=== PATIENT | female | born 1970 | race Caucasian/White ===

== ENCOUNTER 2020-09-19 21:08 | Inpatient (IN) | payer SELFPAY ==
[2020-09-19 21:42] LABS: BASOPHILS % (AUTO) 0.4 %; EOSINOPHILS # (AUTO) 0.3 10^3/uL (0.0-0.7); EOSINOPHILS % (AUTO) 3.1 %; HCT - HEMATOCRIT 42.6 % (37.0-47.0); HGB - HEMOGLOBIN 13.8 g/dL (12.0-16.0); LYMPHOCYTES # (AUTO) 2.7 10^3/uL (1.5-3.5); LYMPHOCYTES % (AUTO) 27.9 %; MEAN CORPUSCULAR HEMOGLOBIN 35.2 pg (27.0-31.0); MEAN CORPUSCULAR HGB CONC 32.4 g/dL (32.0-36.0); MEAN CORPUSCULAR VOLUME 108.7 fL (81.0-99.0); MEAN PLATELET VOLUME 8.9 fL (7.9-10.8); MONOCYTES # (AUTO) 0.8 10^3/uL (0.0-1.0); MONOCYTES % (AUTO) 7.8 %; NEUTROPHILS # (AUTO) 5.8 10^3/uL (1.5-6.6); NEUTROPHILS % (AUTO) 60.3 %; NRBC ABSOLUTE COUNT (AUTO) 0.04 x10^3/uL; NUCLEATED RED BLOOD CELLS AUTO 0.4 /100WBC; PLT - PLATELET COUNT 242 10^3/uL (130-450); RED BLOOD COUNT 3.92 10^6/uL (4.20-5.40); RED CELL DISTRIBUTION WIDTH 16.8 % (12.0-15.0); WHITE BLOOD COUNT 9.6 x10^3/uL (4.8-10.8)
[2020-09-19 21:49] LABS: INR 1.1 (0.8-1.2); PT - PROTHROMBIN TIME 11.7 secs (9.9-12.6)
[2020-09-19 22:10] LABS: ALBUMIN 4.6 g/dL (3.2-5.5); ALBUMIN/GLOBULIN RATIO 1.4 (1.0-2.2); BILIRUBIN,TOTAL 0.8 mg/dL (0.2-1.0); CALCIUM 9.7 mg/dL (8.5-10.3); MAGNESIUM 2.1 mg/dL (1.7-2.8); POTASSIUM 3.9 mmol/L (3.5-5.0); TOTAL PROTEIN 7.8 g/dL (6.7-8.2)
--- NOTE | 2020-09-19 22:33 | ED Physician Documentation ---
PD HPI DYSPNEA - Stated complaint Stated Complaint: SOA/LT ARM PX - Chief complaint Chief Complaint: Resp - History obtained from History obtained from: Patient - History of Present Illness Timing - onset: How many months ago (has had dyspnea on exertion and noted leg edema for a month or more. Has had slow progression. Notes general body edema the past week or more. Today was feeling even more dyspnea, with chest pain and tightness to left chest, into left shoulder. Unable to walk across room without dyspnea.) Timing - onset during: Light activity, Exertion Timing - duration: Months (1 month or more, progressive, with significant increase the past week or so.) Timing - details: Gradual onset, Still present Inciting event(s): No: URI, Allergic rxn/anaphylaxis, Immobilization/travel Improved by: Rest, Sitting up Worsened by: Exertion, Laying flat Associated symptoms: Wheezing, Chest pain / discomfort (today), Bilateral edema (progressive the past 1-2 months). No: Fever, Cough, Hemoptysis Similar symptoms before: Has not had sx before Recently seen: Not recently seen Review of Systems Constitutional: denies: Fever, Chills, Myalgias, Fatigue Nose: denies: Rhinorrhea / runny nose, Congestion Throat: denies: Sore throat Cardiac: reports: Chest pain / pressure, Pedal edema. denies: Palpitations, Calf pain Respiratory: reports: Dyspnea. 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 - Present Medications Home Medications: Ambulatory Orders Medication Instructions Recorded Confirmed No Known Home Medications 09/20/20 09/20/20 - Allergies Allergies/Adverse Reactions: Allergies Allergy/AdvReac Type Severity Reaction Status Date / Time No Known Drug Allergies Allergy Verified 04/21/16 17:09 - Living Situation Living Situation: reports: Alone Living Arrangement: reports: At home - Social History Does the pt smoke?: No Smoking Status: Never smoker Does the pt drink ETOH?: No Does the pt have substance abuse?: No - Family History Family history: reports: CAD - Immunizations Immunizations are current?: No Immunizations: TDAP >10years/unknown PD ED PE NORMAL - Vitals Vital signs reviewed: Yes - General General: Alert and oriented X 3, Well developed/nourished, Other (She appears uncomfortable with tachypnea and tachycardia. Blood pressure is elevated. There is mild wheezing with prolonged expiratory phase. Very notable bilateral leg edema.) - HEENT HEENT: Moist mucous membranes, Pharynx benign - Neck Neck: Supple, no meningeal sign, No adenopathy, Other (JVD noted at 45 degrees. She is most comfortable sitting upright. ) - Cardiac Cardiac: No murmur. No: RRR (regular but tachycardic) - Respiratory Respiratory: No: Clear bilaterally (mild exp wheezing noted scattered. Some p rolonged exp phase. Fine crackles at bases. ) - Abdomen Abdomen: Soft, Non tender, Other (obese) - Female Female : Deferred - Rectal Rectal: Deferred - Back Back: No CVA TTP - Derm Derm: Normal color, Warm and dry - Extremities Extremities: No tenderness to palpate, Normal ROM s pain, No calf tenderness / cord, Other (2+ edema in both lower legs up to knees. Some edema in hands. Mild facial edema. ) - Neuro Neuro: Alert and oriented X 3, No motor deficit, Normal speech Results - Vitals Vitals: Vital Signs - 24 hr 09/19/20 09/19/20 09/19/20 21:24 23:40 23:52 Temperature 36.7 C Heart Rate 110 H 94 97 Respiratory 20 18 18 Rate Blood Pressure 188/98 H 176/103 H O2 Saturation 96 92 09/20/20 09/20/20 09/20/20 00:56 01:03 01:36 Temperature Heart Rate 84 86 Respiratory 17 15 40 H Rate Blood Pressure 154/119 H 157/90 H O2 Saturation 95 93 86 L Oxygen O2 Source Room air - EKG (time done) 22:08 Rate: Rate (enter#) (105) Rhythm: NSR [place]: Normal Intervals: Normal NH QRS: Poor R wave progression Ischemia: Normal ST segments. No: ST elevation c/w ischemia, ST depression Compare to prior EKG: Old EKG unavailable Computer interpretation: Disagree with computer (I disagree with its reading of atrial fib. ) - Labs Labs: Laboratory Tests 09/19/20 09/19/20 09/19/20 21:38 21:38 21:38 WBC 9.6 RBC 3.92 L Hgb 13.8 Hct 42.6 MCV 108.7 H MCH 35.2 H MCHC 32.4 RDW 16.8 H Plt Count 242 MPV 8.9 Neut # (Auto) 5.8 Lymph # (Auto) 2.7 [place] # (Auto) 0.8 Eos # (Auto) 0.3 Baso # (Auto) 0.0 Absolute Nucleated RBC 0.04 Nucleated RBC % 0.4 PT 11.7 INR 1.1 Sodium 142 Potassium 3.9 Chloride 97 L Carbon Dioxide 30 Anion Gap 15.0 H BUN 14 Creatinine 1.0 Estimated GFR (MDRD) 58 L Glucose 125 H Calcium 9.7 Magnesium 2.1 Total Bilirubin 0.8 AST 49 H ALT 54 Alkaline Phosphatase 105 Troponin I High Sens B-Natriuretic Peptide Total Protein 7.8 Albumin 4.6 Globulin 3.2 Albumin/Globulin Ratio 1.4 Urine Color Urine Clarity Urine pH Ur Specific [place] Urine Protein Urine Glucose (UA) Urine Ketones Urine Occult Blood Urine Nitrite Urine Bilirubin Urine Urobilinogen Ur Leukocyte Esterase Ur Microscopic Review Urine Culture Comments 09/19/20 09/19/20 09/20/20 21:38 21:38 01:32 WBC RBC Hgb Hct MCV MCH MCHC RDW Plt Count MPV Neut # (Auto) Lymph # (Auto) [place] # (Auto) Eos # (Auto) Baso # (Auto) Absolute Nucleated RBC Nucleated RBC % PT INR Sodium Potassium Chloride Carbon Dioxide Anion Gap BUN Creatinine Estimated GFR (MDRD) Glucose Calcium Magnesium Total Bilirubin AST ALT Alkaline Phosphatase Troponin I High Sens 8.3 B-Natriuretic Peptide 144 H Total Protein Albumin Globulin Albumin/Globulin Ratio Urine Color YELLOW Urine Clarity CLEAR Urine pH 6.0 Ur Specific [place] 1.020 Urine Protein NEGATIVE Urine Glucose (UA) NEGATIVE Urine Ketones NEGATIVE Urine Occult Blood NEGATIVE Urine Nitrite NEGATIVE Urine Bilirubin NEGATIVE Urine Urobilinogen 0.2 (NORMAL) Ur Leukocyte Esterase NEGATIVE Ur Microscopic Review NOT INDICATED Urine Culture Comments NOT INDICATED - Rads (name of study) chest xray Radiology: Prelim report reviewed (Mild interstitial prominence suggestive of edema. No effusions.), See rad report PD MEDICAL DECISION MAKING - ED course Complexity details: reviewed results (Her chest x-ray shows some interstitial vascular congestion. BNP is minimally elevated. However her symptoms would be suggestive of acute CHF. No signs of renal failure. Urine does not show signs of protein to suggest nephrotic syndrome. It does not seem like allergic reaction nor med related.), re-evaluated patient (Some diuresis with diuretic and heart rate and blood pressure are improved with metoprolol. However still considerable dyspnea. She needs further evaluation and treatment acutely.), considered differential (Considerable dyspnea with even just walking to the bathroom and back. Tachypneic. Baseline sats of 92 to 93% decreased to 86% with ambulation. Consider CHF versus renal failure versus medication related but she does not take any, versus nephrotic syndrome. We will test for each.), d/w patient Departure - Departure Disposition: 66 [facility] DC/Xfer Clinical Impression: Generalized edema, Hypoxia, New onset of congestive heart failure, Elevated blood pressure reading Dyspnea Qualifiers: Dyspnea type: shortness of breath Qualified Code(s): R06.02 - Shortness of breath Condition: Stable Record reviewed to determine appropriate education?: Yes Discharge Date/Time: 09/20/20 02:40
[2020-09-19] MEDS ORDERED: ALBUTEROL NEB 2.5 MG/3 ML INH STA (23:04)
[2020-09-19] MEDS ORDERED: METOPROLOL 5 MG/5 ML VIAL IVP STA (23:05)
[2020-09-19] MEDS ORDERED: FUROSEMIDE 20 MG/2 ML VIAL IVP STA (23:05)
[2020-09-20] MEDS ORDERED: FUROSEMIDE 40 MG/4 ML VIAL IVP STA (01:27)
[2020-09-20 01:40] LABS: BILIRUBIN,URINE NEGATIVE (NEGATIVE); GLUCOSE, URINE (UA) NEGATIVE (NEGATIVE); KETONES,URINE (UA) NEGATIVE (NEGATIVE); LEUKOCYTE ESTERASE, URINE NEGATIVE (NEGATIVE); NITRITE,URINE NEGATIVE (NEGATIVE); OCCULT BLOOD,URINE NEGATIVE (NEGATIVE); PROTEIN,URINE NEGATIVE (NEGATIVE); UROBILINOGEN,URINE 0.2 (NORMAL) E.U./dL (NORMAL)
[2020-09-20 01:41] LABS: CLARITY,URINE CLEAR (CLEAR)
[2020-09-20] MEDS ORDERED: ACETAMINOPHEN 325 MG TABLET PO PRN (01:57)
[2020-09-20] MEDS ORDERED: ONDANSETRON ODT 4 MG TABLET TL PRN (01:57)
[2020-09-20] MEDS ORDERED: SODIUM CHLORIDE FLUSH 0.9% 10 ML SYRINGE IVP PRN (01:57)
--- NOTE | 2020-09-20 02:02 | HISTORY & PHYSICAL EXAMINATION ---
Chief Complaint - Chief Complaint Chief Complaint: Shortness of breath History of Present Illness - Admitted From Admitted From:: Home - History Obtained From Records Reviewed: Yes History obtained from: Patient, ER Physician, EMR - History of Present Illness HPI Comment/Other: This is a 50-year-old female with no significant past medical history who presents today complaining of worsening dyspnea on exertion. She states her symptoms began around June which noted she would have increasing dyspnea with exertion as well as increasing lower extremity edema. This has progressed over the last few months and now she notices she has periorbital edema when she wakes up in the morning which will improve throughout the day. She states in January of last year she weighed about 280 pounds and now she weighs about 330 pounds. She states most of the edema is in her lower extremities. She now wears sandals because her shoes do not fit. She feels like her abdomen is distended and bloated. Today she also felt chest pressure in her left shoulder radiating down to her arm. She had no associated nausea or vomiting. No diaphoresis. It was a 5 out of 10 but now it is down to 1 out of 10. She is a non-smoker and reports no family history of heart disease. She has not seen a physician in over 6 years. Denies a history of hypertension. In the emergency department, she was found to be afebrile with a temperature of 36.7 C. Her heart rate was initially in the 110s but this improved to the 90s. Initial blood pressure was 188/98 but this improved to the 150s after receiving 5 mg of IV Lopressor. She was not tachypneic and saturating 92 to 95% on room air. Labs were significant for BNP of 144. Her urinalysis was unremarkable including negative protein. Her chest x-ray was concerning for pulmonary vascular congestion. Her EKG revealed a sinus rhythm without any ischemic changes. Troponin was normal. She was given 20 mg of Lasix IV in the emergency department. She was able to ambulate after this but still has significant dyspnea on exertion and desaturated to 86% on room air. Given the above findings, medicine was consulted for admission. 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 She believes her father had prostate cancer. Her paternal aunt and grandmother had breast cancer. No history of heart disease to her knowledge. Living arrangement: At home Living Situation: With spouse/s.o. Social History Notes: She is a non-smoker. She does drink 3-4 alcoholic beverages every other day. 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 Meds/Allgy - Home Medications Home Medications: Ambulatory Orders Medication Instructions Recorded Confirmed No Known Home Medications 09/20/20 09/20/20 - Allergies Allergies/Adverse Reactions: Allergies Allergy/AdvReac Type Severity Reaction Status Date / Time No Known Drug Allergies Allergy Verified 04/21/16 17:09 Review of Systems - Constitutional Constitutional: reports: Weight gain. denies: Fever, Chills - Eyes Eyes: reports: Blurred vision - Ears, Nose & Throat Ears, Nose & Throat: denies: Nasal discharge, Nasal congestion, Sore throat - Cardiovascular Cariovascular: reports: Chest pain, Edema, Exertional dyspnea, Decr. exercise tolerance - Respiratory Respiratory: reports: Orthopnea, SOB with exertion. denies: SOB at rest - Gastrointestinal Gastrointestinal: reports: Vomiting. denies: Abdominal pain, Constipation, Diarrhea, Change in bowel habits, Nausea - Genitourinary Genitourinary: denies: Dysuria, Frequency - Musculoskeletal Musculoskeletal: reports: Back pain - Integumentary Integumentary: denies: Rash - Neurological Neurological: reports: Dizziness. denies: General weakness, Focal weakness, N umbness - Hematologic/Lymphatic Hematologic/Lymphatic: reports: Blood clots. denies: Bleeding tendencies - All Other Systems All Other Systems: reports: Reviewed and negative Prior Level of Functionality: She is independent with her ADL's. Exam - Vital Signs Reviewed Vital Signs: Yes Vital Signs: Vital Signs x48h Temp Pulse Resp BP Pulse Ox 09/20/20 01:36 40 H 86 L 09/20/20 01:03 86 15 157/90 H 93 09/20/20 00:56 84 17 154/119 H 95 09/19/20 23:52 97 18 176/103 H 92 09/19/20 23:40 94 18 09/19/20 21:24 36.7 C 110 H 20 188/98 H 96 - Physical Exam General Appearance: positive: No acute distress, Alert Eyes Bilateral: positive: Normal inspection, Conjunctivae nml, Other (No periorbital edema.) ENT: positive: ENT inspection nml Neck: positive: Nml inspection Respiratory: positive: No respiratory distress, Other (Diminished bilaterally.). negative: Wheezes, Rales Cardiovascular: negative: Irregularly irregular, Tachycardia, Bradycardia, Systolic murmur Abdomen: positive: Non-tender, No distention. negative: Tenderness, Guarding, Rebound Skin: positive: Warm, Dry Extremities: positive: Pedal edema (+2 edema in the bilateral lower extremities.) Neurologic/Psychiatric: positive: Oriented x3, Motor nml. negative: Disoriented to person, Disoriented to place, Disoriented to time Conclusion/Plan - Problem List (1) Suspected CHF (congestive heart failure) Conclusion/Plan: The concern is for new onset heart failure given her edema, hypoxia, dyspnea and chest x-ray findings of pulmonary vascular congestion. Her BNP is only mildly elevated but this may be due to her obesity. We will admit her for IV diuresis and place her on Lasix 40 mg IV daily. Will obtain echocardiogram in the morning. Check a TSH. Monitor on telemetry. Low-salt diet. Fluid restriction o f 2 L. Daily weights. (2) Hypoxia Conclusion/Plan: She was hypoxic with exertion desaturating down to 86% on room air. At rest she is in the low 90s. This is likely due to the heart failure given the pulmonary vascular congestion. We will diurese her Lasix 40 mg IV daily. Plan as mentioned above. (3) Chest pressure Conclusion/Plan: This has now pretty much resolved. Her EKG does not suggest ischemia and initi al troponin is negative. We will trend her troponin and monitor on telemetry. Obtain echocardiogram. Will consider stress test if her chest pain returns. (4) Generalized edema Conclusion/Plan: Suspect this is secondary to likely CHF. Her urinalysis reveals no proteinuria so would not suspect nephrotic syndrome. She does drink alcohol but her LFTs are normal so doubt cirrhosis. We will obtain an echocardiogram to evaluate for heart failure as mentioned above. We will diurese her with Lasix IV. Will obtain duplex of the lower extremities. Low-salt diet. Fluid restriction. Daily weights. (5) Hypertension Conclusion/Plan: Her blood pressure is elevated with systolic in the 150s. She will need antihypertensive and based off her echocardiogram findings, she may potentially need an EN inhibitor and a beta-deana. We will look to start an EN inhibitor in the morning and will hold off on a beta-deana for the time being given the acute heart failure. - Lab Results Lab results reviewed: Yes Fish Bones: 09/19/20 21:38 09/19/20 21:38 - Diagnostic Imaging Results Diagnostic Imaging Results: positive: Final report reviewed - EKG Results EKG Interpreted Independently: Yes EKG Comparison: No prior EKG EKG Findings: EKG shows a sinus rhythm. No ischemic changes. No evidence of LVH. Core Measures - Anticipated LOS I expect patient to be DC'd or transferred within 96 hours.: Yes - Issues Hospital Issues and Management Plan: 50-year-old female presents with dyspnea on exertion found to have suspected CHF. She is hypoxic with exertion she will admit for IV diuresis and echocardiogram. - DVT/VTE - Prophylaxis VTE/DVT Device ordered at admit?: No Not Ordered - Medical Reason: Not tolerated VTE/DVT Prophylaxis med ordered at admit?: Yes
[2020-09-20 03:39] LABS: B. PARAPERTUSSIS- RESP PCR PAN NOT DETECTED; B. PERTUSSIS- RESP PCR PANEL NOT DETECTED; C. PNEUMONIAE- RESP PCR PANEL NOT DETECTED; CORONAVIRUS 229E-RESP PCR NOT DETECTED; CORONAVIRUS HKU1-RESP PCR NOT DETECTED; CORONAVIRUS NL63-RESP PCR NOT DETECTED; CORONAVIRUS OC43-RESP PCR NOT DETECTED; HUMAN METAPNEUMOVIRUS NOT DETECTED; INFLUENZA A- RESP PCR PANEL NOT DETECTED; INFLUENZA B - RESP PCR PANEL NOT DETECTED; M. PNEUMONIAE- RESP PCR PANEL NOT DETECTED; PARAINFLUENZA VIRUS 1 NOT DETECTED; PARAINFLUENZA VIRUS 2 NOT DETECTED; PARAINFLUENZA VIRUS 3 NOT DETECTED; PARAINFLUENZA VIRUS 4 NOT DETECTED; RHINOVIRUS/ENTEROVIRUS NOT DETECTED; RSV- RESP PCR PANEL NOT DETECTED; SARS-CoV-2 -RESP PCR PANEL NOT DETECTED
[2020-09-20 05:44] LABS: BASOPHILS % (AUTO) 0.4 %; EOSINOPHILS # (AUTO) 0.2 10^3/uL (0.0-0.7); EOSINOPHILS % (AUTO) 2.4 %; HCT - HEMATOCRIT 43.8 % (37.0-47.0); HGB - HEMOGLOBIN 13.9 g/dL (12.0-16.0); LYMPHOCYTES # (AUTO) 1.7 10^3/uL (1.5-3.5); LYMPHOCYTES % (AUTO) 20.3 %; MEAN CORPUSCULAR HEMOGLOBIN 35.7 pg (27.0-31.0); MEAN CORPUSCULAR HGB CONC 31.7 g/dL (32.0-36.0); MEAN CORPUSCULAR VOLUME 112.6 fL (81.0-99.0); MONOCYTES # (AUTO) 0.6 10^3/uL (0.0-1.0); MONOCYTES % (AUTO) 7.7 %; NEUTROPHILS # (AUTO) 5.6 10^3/uL (1.5-6.6); NEUTROPHILS % (AUTO) 68.8 %; PLT - PLATELET COUNT 189 10^3/uL (130-450); RED BLOOD COUNT 3.89 10^6/uL (4.20-5.40); RED CELL DISTRIBUTION WIDTH 16.9 % (12.0-15.0); WHITE BLOOD COUNT 8.2 x10^3/uL (4.8-10.8)
[2020-09-20 05:55] LABS: SLIDE REVIEW? Indicated
[2020-09-20 06:21] LABS: CHOLESTEROL 174 mg/dL; HDL CHOLESTEROL 85 mg/dL; LDL CHOLESTEROL,CALCULATED 70 mg/dL; LDL/HDL RATIO 0.8 (<4.4); TRIGLYCERIDES 93 mg/dL; VLDL CHOLESTEROL 19 mg/dL
[2020-09-20 06:26] LABS: CALCIUM 8.9 mg/dL (8.5-10.3); MAGNESIUM 2.1 mg/dL (1.7-2.8); PLATELET ESTIMATE, MANUAL NORMAL (130-450,000) (NORMAL); POTASSIUM 3.8 mmol/L (3.5-5.0)
[2020-09-20] MEDS: MULTIVITAMIN TABLET PO SCH (08:28)
--- NOTE | 2020-09-20 08:47 | XRAY Report ---
PROCEDURE: Chest 1 View X-Ray INDICATIONS: dyspnea/edema TECHNIQUE: One view of the chest was acquired. COMPARISON: None. FINDINGS: Surgical changes and devices: None. Lungs and pleura: Diffuse interstitial prominence. Mild vascular congestion with loss of vascular dis tinctness. No focal consolidations. Diffuse hazy opacities of the bilateral costophrenic angles sugge stive of small pleural effusions. This is more pronounced on the left. No pneumothorax. Mediastinum: Mediastinal contours appear within normal limits. Heart size is enlarged. Bones and chest wall: No suspicious bony lesions. Overlying soft tissues appear unremarkable. IMPRESSION: Cardiomegaly with findings suggestive of pulmonary edema. An inflammatory/infectious process not excl uded if clinically appropriate. No focal consolidations. No significant discrepancy with initial interpretation by overnight radiologist. Reviewed by: Luis Fernando Pardo MD on 09/20/2020 8:46 AM PDT Approved by: Luis Fernando Pardo MD on 09/20/2020 8:46 AM PDT Station ID: [id number]
[2020-09-20] MEDS ORDERED: lisinopriL 20 MG TABLET PO SCH (09:00)
--- NOTE | 2020-09-20 10:28 | PHARMACY PROGRESS NOTE ---
- Best Possible Medication History Admit Date and Time: 09/20/20 0157 Processed by: Nursing (MED REC COMPLETE BY NURSING) As the person ultimately responsible for medication therapy, providers are able to order a medication from an existing home medication list in [facility] via the "Reconcile Routine" prior to Confirmation of that medication by biomedical equipment support specialist. Such practice is discouraged except when the physician, in their clinical judgment, deems that a medical need exists for a medication without regard to previous use.
[2020-09-20] MEDS: THIAMINE 100 MG TABLET PO SCH (10:39)
[2020-09-20] MEDS: SODIUM CHLORIDE FLUSH 0.9% 10 ML SYRINGE IVP SCH ×2 (10:40→17:54)
[2020-09-20] MEDS: FUROSEMIDE 40 MG/4 ML VIAL IVP SCH (10:40)
[2020-09-20] MEDS: HEPARIN 5,000 UNIT/ML VIAL SUBQ SCH ×2 (10:40→21:13)
--- NOTE | 2020-09-20 11:56 | Ultrasound Report ---
PROCEDURE: Duplex Ext Veins Bilateral INDICATIONS: Lower extremity edema. TECHNIQUE: Real-time imaging, as well as color and pulse Doppler interrogation, were performed of the deep veins of both legs from the inguinal ligament to the popliteal fossa. COMPARISON: None. FINDINGS: The deep veins are normally compressible, and free of intraluminal thrombus. Color and pu lse Doppler demonstrate normal phasic intravascular flow. There is normal augmentation response to d istal compression maneuver. IMPRESSION: 1. No evidence of deep venous thrombosis in the right or left lower extremities. Reviewed by: Sammy Doyle MD on 09/20/2020 11:55 AM PDT Approved by: Sammy Doyle MD on 09/20/2020 11:55 AM PDT Station ID: [id number]
[2020-09-20 12:18] LABS: ESTIMATED AVERAGE GLUCOSE 108 mg/dL (70-100); HEMOGLOBIN A1c% 5.4 % (4.27-6.07)
[2020-09-21] MEDS: SODIUM CHLORIDE FLUSH 0.9% 10 ML SYRINGE IVP SCH ×2 (02:06→10:05)
[2020-09-21 07:13] LABS: BASOPHILS % (AUTO) 0.3 %; EOSINOPHILS # (AUTO) 0.2 10^3/uL (0.0-0.7); EOSINOPHILS % (AUTO) 2.8 %; HCT - HEMATOCRIT 39.7 % (37.0-47.0); HGB - HEMOGLOBIN 13.3 g/dL (12.0-16.0); LYMPHOCYTES # (AUTO) 2.2 10^3/uL (1.5-3.5); LYMPHOCYTES % (AUTO) 30.2 %; MEAN CORPUSCULAR HEMOGLOBIN 36.1 pg (27.0-31.0); MEAN CORPUSCULAR HGB CONC 33.5 g/dL (32.0-36.0); MEAN CORPUSCULAR VOLUME 107.9 fL (81.0-99.0); MEAN PLATELET VOLUME 9.1 fL (7.9-10.8); MONOCYTES # (AUTO) 0.6 10^3/uL (0.0-1.0); MONOCYTES % (AUTO) 7.7 %; NEUTROPHILS # (AUTO) 4.1 10^3/uL (1.5-6.6); NEUTROPHILS % (AUTO) 57.9 %; PLT - PLATELET COUNT 201 10^3/uL (130-450); RED BLOOD COUNT 3.68 10^6/uL (4.20-5.40); RED CELL DISTRIBUTION WIDTH 16.5 % (12.0-15.0); WHITE BLOOD COUNT 7.2 x10^3/uL (4.8-10.8)
[2020-09-21 07:15] LABS: CALCIUM 8.3 mg/dL (8.5-10.3); MAGNESIUM 1.7 mg/dL (1.7-2.8); POTASSIUM 3.6 mmol/L (3.5-5.0)
[2020-09-21] MEDS: MULTIVITAMIN TABLET PO SCH (08:31)
[2020-09-21] MEDS ORDERED: lisinopriL 5 MG TABLET PO SCH ×2 (09:00→10:30)
--- NOTE | 2020-09-21 09:18 | Discharge Plan ---
Discharge Plan Problem Reviewed?: Yes Disposition: Home, Self Care Condition: Stable Prescriptions: Furosemide [Lasix] 40 mg PO DAILY #30 tablet Potassium Chloride [Micro-K] 10 meq PO DAILY #30 cap lisinopriL [Zestril] 10 mg PO DAILY #30 tablet Diet: Low Sodium Activity Restrictions: Activity as Tolerated Shower Restrictions: No Driving Restrictions: No Instruction Topics: Potassium Chloride Oral powder, Lisinopril tablets, Furosemide tablets, Heart Failure, ED Angioedema Health Concerns: You presented to the emergency room with a slow but strong increase in edema all over your body. Water was being retained not only in your legs but in your arms and face. It was making you short of breath so that doing simple activities made you short winded. We made sure you were not having a heart attack. You did not have pneumonia but diffuse small amounts of water throughout your lung mcbride. We did an echocardiogram which is an ultrasound of the heart and your heart muscle pump, your valves, and the size of your heart was normal. You are not having blood clots to the legs. Thyroid function studies were normal. We looked at all the things that make people become swollen with water weight. We even looked to make sure that your kidney function was normal and that you did not have something called nephrotic syndrome. You did not. Right before discharge we did a spiral CAT scan of your lungs to see if there was scarring in your lung mcbride. The CAT scan showed because of your body habitus, your ability to completely expand her lungs with a deep breath is not present. Other than that, there is no scarring, fluid, thickening of the lung tissue. It was an essentially normal CT scan. Plan of Treatment: 1. Started you on a water pill called Lasix once a day. It is not meant to be permanent. Maybe for the next week. 2. Lasix will recheck potassium 3 your kidneys so we are also giving you potassium tablet 3. We are giving you a blood pressure pill and a congestive heart failure pill called lisinopril. 4. Blood test to make sure your kidney function is staying normal must be done in the next week and in a month. All of these medications treat congestive heart failure. However, your heart failure appears to be mild on all the studies we have done. Down the road you may not need any of these medications. Please establish yourself with a primary care provider. You will need to be seen in the next week. At this time the primary care providers list for Marly Zimmerman will be given to you by social work or estate planner. You could also go to [facility]. You could also go to [place] to be seen by [facility]. Care Goals: To get rid of all the water edema you have on your body. Assessment: Patient understands plan and treatment. And will follow through. Additional Instructions or Follow Up instructions: This document was made in part using voice recognition software. While efforts are made to proofread this document, sound alike and grammatical errors may occur. No Smoking: If you smoke, Please STOP! Call for help.
[2020-09-21] MEDS: HEPARIN 5,000 UNIT/ML VIAL SUBQ SCH (10:04)
[2020-09-21] MEDS: THIAMINE 100 MG TABLET PO SCH (10:05)
[2020-09-21] MEDS: FUROSEMIDE 40 MG/4 ML VIAL IVP SCH (10:05)
--- NOTE | 2020-09-21 14:35 | CT Report ---
PROCEDURE: CHEST WO INDICATIONS: Hypoxia TECHNIQUE: Noncontrast 5 mm thick sections acquired from the pulmonary apices to the posterior costophrenic angl es. 7 mm thick coronal and sagittal MIP reformats were then acquired. For radiation dose reduction, the following was used: automated exposure control, adjustment of mA and/or kV according to patient size. COMPARISON: None FINDINGS: Image quality: Excellent. Lungs and pleura: Scattered areas of subsegmental streaky linear atelectasis due to hypoexpansion of the lungs. No abnormal airspace opacity or interstitial finding. No pleural effusion, pleural thicken ing, or other significant pleural abnormality. Central and peripheral airways are patent and normal i n caliber. Mediastinum: Heart size is normal. No pericardial effusion. No mediastinal adenopathy by size crit eria. Thoracic aorta and central pulmonary arteries are normal in size. Esophagus is normal in carmencita kenia. No hiatal hernia. Bones and chest wall: No suspicious bony lesions. No vertebral body compression fractures. No axil fletcher or supraclavicular adenopathy by size criteria. The thyroid is normal in size. Abdomen: Visualized upper abdominal solid organs and bowel loops appear normal in the absence of con trast. IMPRESSION: No significant or acute finding in the chest. Specifically, no findings of interstitial lung disease or other abnormal interstitial process. Reviewed by: Sourav Aguilar MD on 09/21/2020 2:33 PM PDT Approved by: Sourav Aguilar MD on 09/21/2020 2:33 PM PDT Station ID: [id number]
--- NOTE | 2020-09-21 14:38 | DISCHARGE SUMMARY ---
"Discharge Summary Admit Date: 09/20/20 Discharge Date: 09/21/20 Discharging Provider: Adina Hobson MD Primary Care Provider: Satinder Samano MD Code Status: Attempt Resuscitation Condition at Discharge: Stable Discharge Disposition: 01 Home, Self Care - DIAGNOSES Discharge Diagnoses with Status of Each Condition: 1. Anasarca unknown etiology 2. Hypoxia, present on admission, resolved 3. Hypertension - HPI History of Present Illness: This is a 50-year-old female with no significant past medical history who p resents today complaining of worsening dyspnea on exertion. She states her symptoms began around June which noted she would have increasing dyspnea with exertion as well as increasing lower extremity edema. This has progressed over the last few months and now she notices she has periorbital edema when she wakes up in the morning which will improve throughout the day. She states in January of last year she weighed about 280 pounds and now she weighs about 330 pounds. She states most of the edema is in her lower extremities. She now wears sandals because her shoes do not fit. She feels like her abdomen is distended and bloated. Today she also felt chest pressure in her left shoulder radiating down to her arm. She had no associated nausea or vomiting. No diaphoresis. It was a 5 out of 10 but now it is down to 1 out of 10. She is a non-smoker and reports no family history of heart disease. She has not seen a physician in over 6 years. Denies a history of hypertension. In the emergency department, she was found to be afebrile with a temperature of 36.7 C. Her heart rate was initially in the 110s but this improved to the 90s. Initial blood pressure was 188/98 but this improved to the 150s after receiving 5 mg of IV Lopressor. She was not tachypneic and saturating 92 to 95% on room air. Labs were significant for BNP of 144. Her urinalysis was unremarkable including negative protein. Her chest x-ray was concerning for pulmonary vascular congestion. Her EKG revealed a sinus rhythm without any ischemic changes. Troponin was normal. She was given 20 mg of Lasix IV in the emergency department. She was able to ambulate after this but still has significant dy spnea on exertion and desaturated to 86% on room air. Given the above findings, medicine was consulted for admission. - Past Medical History Cardiovascular: reports: None Respiratory: reports: None Neuro: reports: None MRSA Hx?: No - Past Surgical History General: reports: Other (Lap band.) /[employer]: reports: Tubal ligation - CONSULTS | PROCEDURES Procedures: Chest CT for fibrosis protocol shows no significant or acute findings in the chest. No interstitial lung disease or other abnormal interstitial process. The heart size is normal. There is no pericardial effusion. No adenopathy. No evidence of congestive heart failure. Echocardiogram has mild pulmonary hypertension with a PASP of 45 mmHg. Otherwise normal echocardiogram with an ejection fraction of 65%. No si gnificant valvular heart disease. TSH is 1.94. Urine has no proteinuria. - HOSPITAL COURSE Hospital Course: On physical examination and by history she was describing someone who was having congestive heart failure. However, once we diuresed her and did our objective evaluations, there was no evidence of congestive heart failure. While she responded to the diuretics and she had overall reduction in edema of her legs, face and arms, the echocardiogram was negative for CHF. CT angiogram looking for interstitial fibrosis or edema was negative. Venous Dopplers of the legs were negative for DVT. Overall the patient was feeling much better. She had only trace edema around her ankles at the time of discharge but we are puzzled by the discordance betw kathie objective findings and physical exam findings. On examination she is down 2 kg of water weight. She started at 153.1 kg and is being discharged at 151.5 kg. Blood pressure is 130/86. Pulse of 69. Respirations 20 and unlabored. She is 92% on room air. She is 5 foot 1 inch tall. Neck is supple. Unable to assess for JVD because of the thickness and obesity. Diminished breath sounds at the bases but are essentially clear without crackles rhonchi wheezing. No increased respiratory effort when she goes from sitting supine to sitting position. She is able to get up and walk to the bathroom and get back in bed without tachypnea or increased respiratory distress. The abdomen is with a hugely obese pannus, unable to assess for organomegaly. Normal bowel sounds. Legs have a faint red tinge of chronic venous stasis discoloration to the anterior shins. But there is no skin breakdown. Trace edema in comparison to yesterday which had 1+ edema. She has an appointment with a new primary care provider, Dr. Samano, on September 25. I have asked her to keep that appointment. She is good to be discharged on Lasix, potassium, lisinopril. I explained to her that I do not think she needs to be on diuretic therapy indefinitely. I do want her to take these medicines for the next week. But then stop them. She and Dr. Samano can then decide if she needs further therapy considering her echocardiogram and CT of the chest have no pathology. We did think about nephrotic syndrome, hypothyroidism and found no evidence of that. This document was made in part using voice recognition software. While efforts are made to proofread this document, sound alike and grammatical errors may occ ur Greater than 30 minutes was spent coordinating discharge - ALLERGIES Allergies/Adverse Reactions: Allergies Allergy/AdvReac Type Severity Reaction Status Date / Time No Known Drug Allergies Allergy Verified 04/21/16 17:09 - MEDICATIONS Home Medications: Ambulatory Orders Medication Instructions Recorded Confirmed Furosemide [Lasix] 40 mg PO DAILY #30 tablet 09/21/20 Multivitamin [Theragran] 1 tab PO DAILYWM tablet 09/21/20 Potassium Chloride [Micro-K] 10 meq PO DAILY #30 cap 09/21/20 Thiamine [Vitamin B-1] 100 mg PO DAILY tablet 09/21/20 lisinopriL [Zestril] 10 mg PO DAILY #30 tablet 09/21/20 - LABS Result Diagrams: 09/21/20 06:42 09/21/20 06:42"
[2020-09-21 15:18] VITALS: BP 143/77
--- OUTSIDE RECORDS SUMMARY | 2020-09-26 00:18 | EXTERNAL MEDICAL SUMMARY RPT | Continuity of Care Document ---
:1970 Demographics Phone Unavailable Preferred Language Unknown Marital Status Unknown Catholic Affiliation Unknown Race Unknown Ethnic Group Unknown Author Organization [facility] Address [address] [id number] Phone Social History date description facility [phone]
== END 2020-09-21 15:19 | disposition home or self-care (01) | DRG 948 ==
LOC: ED 21:08 → MS2 09-20 01:57
PROVIDERS: ADMIT Internal Medicine; ATTEND Specialist
DX: R60.1 Generalized edema (principal); Z68.44 Body mass index [BMI] 60.0-69.9, adult; R09.02 Hypoxemia; I10 Essential (primary) hypertension; R06.00 Dyspnea, unspecified; E66.9 Obesity, unspecified; R07.89 Other chest pain; Z20.822 Contact with and (suspected) exposure to COVID-19
CPT/HCPCS: 0202U; 36415; 51798; 71045; 71250; 80048; 80053; 80061; 81003; 82607; 82746; 83036; 83735; 83880; 84443; 84484; 85025; 85610; 93005; 93306; 93970; 94640; 96374; 96375; 96376; 99284; 99285; A9270; 81001; 83721; 87086

== ENCOUNTER 2020-10-22 13:37 | Outpatient (CLI) | payer OTHER ==
[2020-10-22 20:50] LABS: ALBUMIN 4.8 g/dL (3.2-5.5); ALBUMIN/GLOBULIN RATIO 1.3 (1.0-2.2); BILIRUBIN,TOTAL 1.6 mg/dL (0.2-1.0); CALCIUM 9.2 mg/dL (8.5-10.3); CREATININE 1.9 mg/dL (0.4-1.0); POTASSIUM 4.3 mmol/L (3.5-5.0); TOTAL PROTEIN 8.4 g/dL (6.7-8.2)
== END 2020-10-22 13:38 | disposition home or self-care (01) ==
LOC: LAB.S 13:37
PROVIDERS: ATTEND Internal Medicine
DX: R60.9 Edema, unspecified (principal)
CPT/HCPCS: 36415; 80053

== ENCOUNTER 2020-11-16 13:00 | Outpatient (CLI) | payer OTHER ==
[2020-11-16 14:55] LABS: BILIRUBIN,URINE NEGATIVE (NEGATIVE); GLUCOSE, URINE (UA) NEGATIVE (NEGATIVE); KETONES,URINE (UA) NEGATIVE (NEGATIVE); LEUKOCYTE ESTERASE, URINE NEGATIVE (NEGATIVE); NITRITE,URINE NEGATIVE (NEGATIVE); OCCULT BLOOD,URINE NEGATIVE (NEGATIVE); PROTEIN,URINE NEGATIVE (NEGATIVE); UROBILINOGEN,URINE 0.2 (NORMAL) E.U./dL (NORMAL)
[2020-11-16 15:02] LABS: BACTERIA,URINE None Seen /HPF (None Seen); CLARITY,URINE CLEAR (CLEAR); MUCUS,URINE Few Strands; RBC,URINE 0-5 /HPF (0-5); SQUAMOUS EPITHELIAL CELL,UR FEW Squamous (<= Few); WBC,URINE 0-3 /HPF (0-5)
[2020-11-16 15:43] LABS: ALBUMIN 4.5 g/dL (3.2-5.5); ALBUMIN/GLOBULIN RATIO 1.3 (1.0-2.2); BILIRUBIN,TOTAL 1.2 mg/dL (0.2-1.0); CALCIUM 9.1 mg/dL (8.5-10.3); CREATININE 1.2 mg/dL (0.4-1.0); POTASSIUM 4.3 mmol/L (3.5-5.0); TOTAL PROTEIN 7.9 g/dL (6.7-8.2)
== END 2020-11-16 13:01 | disposition home or self-care (01) ==
LOC: LAB.S 13:00
PROVIDERS: ATTEND Internal Medicine
DX: R79.89 Other specified abnormal findings of blood chemistry (principal)
CPT/HCPCS: 36415; 80053; 81001; 87086

== ENCOUNTER 2020-11-27 15:11 | Outpatient (CLI) | payer OTHER ==
--- NOTE | 2020-11-27 16:28 | SLEEP CARE CONSULTATION ---
Information from patient questionnaire entered by Marcella Murphy. I have reviewed and concur with the information entered by Marcella Murphy. This document represents the service I personally performed and the decisions made by me, Kalyn Bowling ARNP. History of Present Illness Service Date and Time: 11/27/2020 1511 Reason for Visit: New patient Chief Complaint: reports: Unrefreshed sleep, Snoring, Excessive daytime sleepiness, Observed pauses in breathing, Fatigue, Frequent awakenings at night Date of Onset: over 1 year, increasing last 6 months Usual bedtime: 9-10 pm Time it takes to fall asleep: right away to 30 minutes Snores at night: Yes Observed to quit breathing while asleep: Yes Sleeps alone due to snoring: No Number of times waking at night: 3-6 Reasons for waking at night: reports: Gasping for air, Bathroom, Other (unknown reason; startle herself). denies: Snoring Toss, Turn, or Twitch while sleeping: No (I don't believe so) Recalls having dreams: Yes Usually gets out of bed at: weekdays - 6 am; weekends - 9am-12pm Feels refreshed in the morning: No Morning headache: Yes (resolves in a couple hours; most mornings) Sleepy or fatigued during the day: Yes Ever fallen asleep while driving: No Takes day naps: Yes (nap all day on the weekends) Dreams during day naps: Yes Prior sleep studies: No Additional HPI information: I had the pleasure of seeing DIMPLE SERNA today regarding the possibility of her having a sleep disorder. Her current complaints are fatigue, frequent night awakenings, observed pauses in breathing, and snoring. She was in the hospital for possible CHF with angioedema. She was asked questions about sleeping and told them she has pauses in breathing and snores. Her has seen her jump and gasp after a pause in breathing. She does not feel rested in the mornings. Patient states she does take naps when she can and will sleep all day on the weekends. She states that she gets tired she can fall asleep easily. 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 Patient is and lives in [place]. Have you smoked in the past 12 months: No Cigarettes per day (20/pack): 3 (not much) Years of smokin Quit date: 1986 Smoking Pack Years: 0.1 Alcohol use: Yes Alcohol amount and frequency: a couple drinks every other day at least Caffeine use: Yes Caffeine amount and frequency: every few days Family History Family history of sleep disordered breathing: No (don't know, adopted) Allergies and Home Medications Drug allergies reviewed: Yes (NKDA) Home medication list reviewed: Yes Allergy and home medication list: Lisinopril Potassium Furosemide Women's daily vitamin Vitamin B12 Review of Systems Weight gain over past 5 years: over 60 Cardiovascular: reports: high blood pressure, leg or foot swelling Respiratory: reports: shortness of breath, wheeze, sputum production, chronic cough Gastrointestinal: reports: heartburn, difficulty swallowing, vomitting, abdominal pain Urinary: reports: incontinence (cough?), urgency Neurological: reports: headaches, head trauma Psychiatric: reports: claustrophobia Ear/Nose/Throat: reports: dry mouth/throat, wisdom teeth removed. denies: tonsillectomy Endocrine: reports: sluggishness Musculoskeletal: reports: joint pain, neck pain, back pain, muscle pain or cramping Immunologic: reports: allergies to food or environment Physical Exam Heart Rate: 86 O2 Saturation: 91 Height: 5 ft 1 in Weight: 309 lb Body Mass Index: 58.3 BMI Classification: Morbidly Obese Neck circumference: 16 (inches) Mouth and throat: narrow oropharynx Soft palate: long Hard palate: normal Uvula: normal Uvula visualization: 50% Mallampati Class II Tongue: enlarged in size with teeth dsouza on lateral edges Tonsils: 2+ Neck: normal w/o lymphadenopathy or thyromegaly Heart: regular rate and rhythm Lungs: clear bilaterally Impression and Plan 1. Suspected Obstructive Sleep Apnea-Hypopnea Syndrome, as suggested by a history of loud and irregular snoring, observed cessation of breath while asleep , gasping or choking in sleep, morning headache, frequent awakening during the night, unrefreshed sleep, cognitive impairment, and excessive daytime sleepiness. Narrow oropharynx and obesity are common predisposing factors for obstructive sleep apnea-hypopnea syndrome. I recommend proceeding to polysomnography to confirm the diagnosis and to assess severity. If the patient has significant sleep disordered breathing, a manual CPAP titration study will also be performed to find the optimal treatment pressure. I informed the patient of what the sleep studies involve and after some discussion, obtained agreement to proceed. The pathophysiology of obstructive sleep apnea-hypopnea syndrome was discussed with the patient and health risks of cardiovascular and cerebrovascular disease if not treated. AAS brochure for obstructive sleep apnea-hypopnea syndrome given and reviewed. Risks of drowsy driving discussed in detail and patient advised to avoid long distance driving and to toe puller at th e first sign of drowsiness. Patient agreed to plan. * Schedule polysomnography +- manual CPAP titration study and return in 1-2 weeks after the study to discuss result and initiate therapy. * Avoid long distance driving or driving when feeling sleepy. * Avoid alcohol, sedative and muscle relaxant around bedtime. * Attempt to lose weight. * Review instructions provided by trained office staff on how to prepare for the sleep study. * Return for follow-up after sleep study completed. Counseling Topics: Weight loss health impact Visit Type: In Office Time Spent with Patient (minutes): 33 Provider Statement: I spent 100% of the Face to Face Visit with the patient with greater than 50% spent counseling the patient and coordination of care.
== END 2020-11-27 15:12 | disposition home or self-care (01) ==
LOC: SC 15:11
PROVIDERS: ATTEND Nurse Practitioner Family
DX: G47.10 Hypersomnia, unspecified (principal); R06.83 Snoring; G47.8 Other sleep disorders; R51.9 Headache, unspecified; R06.81 Apnea, not elsewhere classified; R41.89 Other symptoms and signs involving cognitive functions and awareness; E66.01 Morbid (severe) obesity due to excess calories; Z68.43 Body mass index [BMI] 50.0-59.9, adult
CPT/HCPCS: 99203; 99212

== ENCOUNTER 2020-12-05 14:23 | Outpatient (CLI) | payer OTHER | END 2020-12-05 14:24 | disposition home or self-care (01) | LOC: SC 14:23 | PROVIDERS: ATTEND Nurse Practitioner Family | DX: G47.33 Obstructive sleep apnea (adult) (pediatric) (principal); E66.01 Morbid (severe) obesity due to excess calories; Z68.43 Body mass index [BMI] 50.0-59.9, adult | CPT/HCPCS: 95806 ==

== ENCOUNTER 2021-01-01 16:16 | Outpatient (CLI) | payer OTHER ==
[2021-01-01 20:24] LABS: ALBUMIN 4.4 g/dL (3.2-5.5); ALBUMIN/GLOBULIN RATIO 1.3 (1.0-2.2); BILIRUBIN,TOTAL 0.6 mg/dL (0.2-1.0); CALCIUM 8.7 mg/dL (8.5-10.3); CREATININE 1.2 mg/dL (0.4-1.0); POTASSIUM 4.5 mmol/L (3.5-5.0); TOTAL PROTEIN 7.7 g/dL (6.7-8.2)
== END 2021-01-01 16:17 | disposition home or self-care (01) ==
LOC: LAB.S 16:16
PROVIDERS: ATTEND Internal Medicine
DX: R79.89 Other specified abnormal findings of blood chemistry (principal)
CPT/HCPCS: 36415; 80053

== ENCOUNTER 2021-01-10 14:59 | Outpatient (CLI) | payer OTHER ==
--- NOTE | 2021-01-10 15:41 | SLEEP CARE CONSULTATION ---
Information from patient questionnaire entered by Marcella Murphy. I have reviewed and concur with the information entered by Marcella Murphy. This document represents the service I personally performed and the decisions made by , Kalyn Bowling ARNP. History of Present Illness Service Date and Time: 01/10/2021 1459 Initial [place] Sleepiness Scale score: 16 (in 2020) Current [place] Sleepiness Scale score: 16 Additional HPI information: DIMPLE SERNA returns for follow up and results of the recently performed home sleep study. I explained the pathophysiology behind obstructive sleep apnea. We then spent quite a bit of time discussing different treatment options. For mild obstructive sleep apnea, surgery and oral appliance are alternatives to nasal CPAP therapy but in moderate or severe cases, nasal CPAP is the most effective and reliable treatment. Because apnea is primarily in supine position, then positional management therapy could be effective. Methods discussed such as positioning with pillows, using a T-shirt with tennis balls in the back, and shown commercial products that have a pillow format on back to prevent supine sleep. I reviewed the impact of weight changes on sleep apnea and strongly recommended losing weight. After some discussion, the patient opted to go with the nasal CPAP therapy. Nasal autoCPAP set at 4-15 cmH20 will be ordered with rationale explained. A manual titration study will be ordered if unable to find optimal pressure with office adjustments. I explained how CPAP machine works with sample devices Respironics Dreamstation and ResGalenea [id number] and what to expect when using the machine. Using CPAP every night in order to get used to it was emphasized. Patient advised to put CPAP mask on before getting into bed so as not to fall asleep without CPAP. To assist acclimation to CPAP use, it could also be used for a short time during day while reading or watching TV. The patient was instructed to call the CPAP supplier to discuss any mechanical problem that may occur. If the mask given is uncomfortable or is difficult to keep on through the night even with adjustment, contact the CPAP supplier as many will replace with another mask style if notified before 30 days. If snoring or perceives is not getting enough air or too much air from the machine, notify this office. AAS patient education PAP tips reviewed and given to patient. Patient was cautioned about risks of drowsy driving until sleepiness symptoms resolve. Sleep Study - Results Type of Sleep Study: Home sleep study Prior sleep studies: No Year and Where: 2020 - [facility] Sleep Polysomnography/Home Sleep Study results: Physician Impression: The quality of the study is good. The length of the study is adequate (> 240 minutes). Please also see the tabulated and graphic data. 1. Obstructive Sleep Apnea-Hypopnea (ICD-10 G47.33), severe, with an AHI of 30.2 /hr and hector SaO2 of 68%. During the study, the patient had 56 apneas (56 obstructive, 0 central, 0 mixed) and 168 hypopneas. The longest episode lasted 70.0 seconds. The respiratory events occurred independently of sleep stage and body position (supine AHI was 23.5 and non-supine, 33.80). 2. Hypoxemia (ICD-10 R09.02), moderate, with the lowest oxygen saturation of 68 % and 354.8 minutes with SaO2 under 90%. Baseline oxygen saturation was low (Average oxygen saturation was 87%). Allergies and Home Medications Home medication list reviewed: Yes (increased Lisinopril to 20 mg, starting today) Review of Systems Review of systems same as previous: Yes (no changes) Physical Exam Heart Rate: 87 O2 Saturation: 98 Height: 5 ft 1 in Weight: 307 lb Body Mass Index: 58.0 BMI Classification: Morbidly Obese Impression and Plan 1. Obstructive Sleep Apnea-Hypopnea Syndrome, severe, with lowest oxygen saturation of 68%. Obviously this is the cause of the patients symptoms of unrefreshed sleep, and excessive daytime sleepiness. Positive pressure therapy could benefit hypertension, congestive heart failure and asthma. As mentioned above, the patient will be started on nasal autoCPAP therapy with pressure set at 4-15 cmH2O. A manual titration study will be completed if unable to find optimal treatment pressure with office adjustments. Compliance guidelines also reviewed. A copy of compliance guidelines will be given for reference at check out. 2. Hypoxemia, moderate, with the lowest oxygen saturation of 68 % and 354.8 minutes with SaO2 under 90%. Her baseline oxygen saturation was low with an average oxygen saturation of 87%. A low baseline oxygen saturation can indicate underlying cardiopulmonary disorders such as COPD, congestive heart failure, obesity hypoventilation, etc. Further work up with PFTs, ABGs, may be benefic ial. Patient has a history of congestive heart failure. She should follow up with PCP/cardiology as needed. * Nasal auto CPAP therapy, pressure at 4-15 cm H2O. * Attempt to lose weight. * Avoid alcohol consumption near bedtime. * Avoid supine sleep until using CPAP. * The patient is again cautioned about driving until sleepiness completely resolves. * Return one month after CPAP obtained. I will assess response to therapy and compliance at that time. Counseling Topics: Weight loss health impact Visit Type: In Office Time Spent with Patient (minutes): 20 Provider Statement: I spent 100% of the Face to Face Visit with the patient with greater than 50% spent counseling the patient and coordination of care.
== END 2021-01-10 15:00 | disposition home or self-care (01) ==
LOC: SC 14:59
PROVIDERS: ATTEND Nurse Practitioner Family
DX: G47.33 Obstructive sleep apnea (adult) (pediatric) (principal); R09.02 Hypoxemia; E66.01 Morbid (severe) obesity due to excess calories; Z68.43 Body mass index [BMI] 50.0-59.9, adult
CPT/HCPCS: 99212; 99213

== ENCOUNTER 2021-01-22 07:16 | Outpatient (CLI) | payer OTHER ==
[2021-01-22 15:38] LABS: ALBUMIN 3.8 g/dL (3.2-5.5); ALBUMIN/GLOBULIN RATIO 1.3 (1.0-2.2); BILIRUBIN,TOTAL 0.8 mg/dL (0.2-1.0); CREATININE 1.6 mg/dL (0.4-1.0); TOTAL PROTEIN 6.7 g/dL (6.7-8.2)
== END 2021-01-22 07:17 | disposition home or self-care (01) ==
LOC: LAB.S 07:16
PROVIDERS: ATTEND Internal Medicine
DX: I50.1 Left ventricular failure, unspecified (principal); R79.89 Other specified abnormal findings of blood chemistry
CPT/HCPCS: 36415; 80053; 83880

== ENCOUNTER 2021-02-04 07:42 | Emergency (ER) | payer OTHER ==
[2021-02-04] MEDS ORDERED: CHERRY SYRUP 10 ML UDC PO ONE (09:45)
[2021-02-04] MEDS ORDERED: DEXAMETHASONE 10 MG/ML VIAL PO STA (09:45)
[2021-02-04] MEDS ORDERED: KETOROLAC 60 MG/2 ML VIAL IM STA (09:45)
--- NOTE | 2021-02-04 09:45 | ED Physician Documentation ---
History of Present Illness - Stated complaint Stated Complaint: FEET PX - Chief complaint Chief Complaint: Ext Problem - History obtained from History obtained from: Patient - History of Present Illness Timing: Yesterday - Additonal information Additional information: 51-year-old female with a history of hypertensive heart disease who has been on Lasix for several months after developing acute fluid retention in August has awoken with foot pain yesterday morning. Pain was severe just the bed sheets touching the feet hurt and she was unable to get up and walk around much yesterday because of this pain. Last night she was unable to sleep secondary to pain and even mild movement of her feet is causing severe pain. She is no longer swollen but she is on lisinopril and Lasix. Review of Systems Constitutional: reports: Fatigue. denies: Fever Eyes: denies: Decreased vision Ears: denies: Ear pain Nose: denies: Rhinorrhea / runny nose, Congestion Throat: denies: Sore throat Cardiac: denies: Chest pain / pressure, Palpitations Respiratory: denies: Dyspnea, Cough GI: denies: Abdominal Pain, Nausea, Vomiting, Constipation, Diarrhea : denies: Dysuria, Frequency Skin: denies: Rash Musculoskeletal: reports: Extremity pain, Pain with weight bearing. 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 - Present Medications Home Medications: Ambulatory Orders Medication Instructions Recorded Confirmed Furosemide [Lasix] 40 mg PO DAILY #30 tablet 09/21/20 02/04/21 Multivitamin [Theragran] 1 tab PO DAILYWM tablet 09/21/20 02/04/21 Potassium Chloride [Micro-K] 10 meq PO DAILY #30 cap 09/21/20 02/04/21 Thiamine [Vitamin B-1] 100 mg PO DAILY tablet 09/21/20 02/04/21 lisinopriL [Zestril] 10 mg PO DAILY #30 tablet 09/21/20 02/04/21 HYDROcod/ACETAM 5/325 [Alliance 5/325] 1 - 2 tablet PO Q6H PRN #14 tablet 02/04/21 - Allergies Allergies/Adverse Reactions: Allergies Allergy/AdvReac Type Severity Reaction Status Date / Time No Known Drug Allergies Allergy Verified 04/21/16 17:09 - Social History Does the pt smoke?: No Smoking Status: Never smoker Does the pt drink ETOH?: Yes Does the pt have substance abuse?: No - Immunizations Immunizations are current?: No Immunizations: TDAP >10years/unknown PD ED PE NORMAL - Vitals Vital signs reviewed: Yes (hypertensive ) - General General: Alert and oriented X 3, No acute distress, Well developed/nourished - HEENT HEENT: Atraumatic, PERRL, EOMI - Neck Neck: Supple, no meningeal sign, No bony TTP - Cardiac Cardiac: RRR, No murmur - Respiratory Respiratory: No respiratory distress, Clear bilaterally - Abdomen Abdomen: Normal bowel sounds, Soft, Non tender, Non distended, No organomegaly - Back Back: No CVA TTP, No spinal TTP - Derm Derm: Normal color, Warm and dry, No rash - Extremities Extremities: No deformity, No edema, Other (PatientThere is exquisite tenderness to of the left foot in general especially over the left great toe. On the right the pain is isolated to the great toe and again only brushing up against the toe causes severe pain. No sig redness or swelling. ) - Psych Psych: Normal mood, Normal affect Results - Vitals Vitals: Vital Signs - 24 hr 02/04/21 07:51 Temperature 36.7 C Heart Rate 85 Respiratory 16 Rate Blood Pressure 134/87 H O2 Saturation 97 Oxygen O2 Source Room air Procedures - IVC sono (time) 0940 Bedside IVC sono: IVC measures (cm) (1.12), Dehydration (est 1+ liter deficit) PD MEDICAL DECISION MAKING - ED course Complexity details: reviewed results, re-evaluated patient, considered differential, d/w patient ED course: 51-year-old female with a prior history of congestive heart failure with generalized edema has been on Lasix for months and she today is dehydrated on interrogation the inferior vena cava. She has been feeling fatigued over the pa st several days and did not perform it one of her functions. She awoke yesterday morning with exquisite pain to her feet and I suspect by examination and history the patient has gout. Examination is consistent. Patient administered dexamethasone 10 mg orally and Toradol 60 mg IM. I did interrogate the patient's inferior vena cava and found her to be dehydrated on the order of 1+ liters. I have asked patient to discontinue her Lasix for the time being. 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 This should resolve in 2 to 5 days. We have given you some anti-inflammatory steroid and some non-steroidal anti-inflammatory. This should help with your pain. We checked your volume status today and you are dehydrated. This can precipitate a gout attack and the recommendation is to stop the Lasix for now. We will provide some pain medication on a limited basis for the next several days to use as needed.
[2021-02-04 10:20] VITALS: BP 119/86
== END 2021-02-04 10:20 | disposition home or self-care (01) ==
LOC: ED 07:42
DX: M10.272 Drug-induced gout, left ankle and foot (principal); M10.271 Drug-induced gout, right ankle and foot; E86.0 Dehydration; T50.1X5A Adverse effect of loop [high-ceiling] diuretics, initial encounter
CPT/HCPCS: 96372; 99283; 99284; A9270

== ENCOUNTER 2021-03-05 07:27 | Outpatient (CLI) | payer OTHER ==
[2021-03-05 14:45] LABS: ALBUMIN 3.6 g/dL (3.2-5.5); ALBUMIN/GLOBULIN RATIO 1.1 (1.0-2.2); BILIRUBIN,TOTAL 0.8 mg/dL (0.2-1.0); CALCIUM 8.5 mg/dL (8.5-10.3); CREATININE 1.6 mg/dL (0.4-1.0); MAGNESIUM 2.3 mg/dL (1.7-2.8); POTASSIUM 4.6 mmol/L (3.5-5.0); TOTAL PROTEIN 6.9 g/dL (6.7-8.2)
== END 2021-03-05 07:28 | disposition home or self-care (01) ==
LOC: LAB.S 07:27
PROVIDERS: ATTEND Internal Medicine
DX: E83.51 Hypocalcemia (principal); R79.89 Other specified abnormal findings of blood chemistry
CPT/HCPCS: 36415; 80053; 83735

== ENCOUNTER 2021-03-18 07:26 | Outpatient (CLI) | payer OTHER ==
[2021-03-18 15:20] LABS: BILIRUBIN,URINE NEGATIVE (NEGATIVE); GLUCOSE, URINE (UA) NEGATIVE (NEGATIVE); KETONES,URINE (UA) NEGATIVE (NEGATIVE); LEUKOCYTE ESTERASE, URINE SMALL (NEGATIVE); NITRITE,URINE NEGATIVE (NEGATIVE); OCCULT BLOOD,URINE NEGATIVE (NEGATIVE); PROTEIN,URINE NEGATIVE (NEGATIVE); UROBILINOGEN,URINE 0.2 (NORMAL) E.U./dL (NORMAL)
[2021-03-18 15:30] LABS: BACTERIA,URINE Few /HPF (None Seen); CLARITY,URINE CLEAR (CLEAR); RBC,URINE 0-5 /HPF (0-5); SQUAMOUS EPITHELIAL CELL,UR FEW Squamous (<= Few); WBC,URINE >25 /HPF (0-5)
[2021-03-18 15:40] LABS: ALBUMIN/GLOBULIN RATIO 1.4 (1.0-2.2); BILIRUBIN,TOTAL 1.3 mg/dL (0.2-1.0); CALCIUM 8.6 mg/dL (8.5-10.3); CREATININE 1.3 mg/dL (0.4-1.0); POTASSIUM 3.9 mmol/L (3.5-5.0); TOTAL PROTEIN 6.8 g/dL (6.7-8.2); URIC ACID 6.8 mg/dL (2.6-7.2)
[2021-03-18 15:42] LABS: CREATININE,URINE 63.5 mg/dL
== END 2021-03-18 07:27 | disposition home or self-care (01) ==
LOC: LAB.S 07:26
PROVIDERS: ATTEND Internal Medicine
DX: I50.1 Left ventricular failure, unspecified (principal); R79.89 Other specified abnormal findings of blood chemistry
CPT/HCPCS: 36415; 80053; 81001; 82570; 84300; 84550; 87086

== ENCOUNTER 2021-03-21 15:11 | Outpatient (CLI) | payer OTHER ==
--- NOTE | 2021-03-21 15:40 | SLEEP CARE CONSULTATION ---
Information from patient questionnaire entered by Donny Ng. I have reviewed and concur with the information entered by Donny Ng. This document represents the service I personally performed and the decisions made by , Kalyn Bowling ARNP. History of Present Illness Service Date and Time: 03/21/2021 1511 Previous diagnosis: Severe, Obstructive Sleep Apnea-Hypopnea Syndrome AHI: 30.2 Reason for follow up: first compliance (Set up 02/01 with a [facility]) Equipment obtained from: [employer] (got inital supplies, no issues) Mask style: Nasal Mask brand: Respironics (Dreamwear) Backup mask available: No (will keep old mask when replaced) Last cushion change: 1 month Prior sleep studies: No Year and Where: 2020 - [facility] Type of Sleep Study: Home sleep study HPI additional information: DIMPLE SERNA was diagnosed to have severe, AHI 30.2, obstructive sleep apnea-hypopnea syndrome and returned today for CPAP therapy first compliance follow-up. CPAP Compliance Data - Data Reviewed with Patient Average duration of nightly device use: 5 h 56 min Compliance rate %: 67 (30 days) Current pressure setting (cmH2O): 4-15 (median 12.2, avg 14.4, max 14.8) Average residual AHI: 0.2 Central apnea: 0.0 Obstructive apnea: 0.1 Subjective Missed days of use due to: reports: other (Power outage) Patient concerns: reports: mask leak noise (just needs adjusting), dry mouth, nose, throat (dry mouth). denies: aerophagia, mask discomfort, air blowing in eyes, condensation in mask/hose, nasal congestion, epistaxis, other Observed to snore while using device: No Current pressure setting perceived as: comfortable On therapy, patient: reports: sleeping better, awakening more refreshed, being more awake and alert during the day, more rested overall. denies: drowsiness while driving Initial [place] Sleepiness Scale score: 16 (in 2020) Current [place] Sleepiness Scale score: 12 Allergies and Home Medications Home medication list reviewed: Yes (no changes) Allergy and home medication list: Lisinopril Lasix vitamins potassium Vitamin B Review of Systems Review of systems same as previous: Yes (no changes) Physical Exam Heart Rate: 96 O2 Saturation: 95 Height: 5 ft 1 in Weight: 298 lb Body Mass Index: 56.2 BMI Classification: Morbidly Obese Impression and Plan 1. Obstructive Sleep Apnea-Hypopnea Syndrome, severe, with fair treatment compliance and excellent apnea control. On CPAP therapy, the patient has better sleep quality and is more rested overall. She is becoming more comfortable with her CPAP therapy and has great apnea control already. The patients pressure will be changed to autoCPAP 12-15 cmH20 to reflect the pressures being used. Patient advised to contact me if pressure change is uncomfortable so that it can be adjusted. Goals for apnea control discussed. Patient has an appointment to meet with doctor for her bariatric surgery. Patient was encouraged to continue to try to lose weight for her overall health and to reduce apneas. Patient's apnea severity and rationale for treatment to reduce apnea, improve sleep quality and reduce cardiovascular and cerebrovascular events was reviewed. I also reviewed the benefit of consistent device use of CPAP for hypertension, cardiac disease (CHF) and asthma. * Change auto CPAP pressure to 12-15 cmH2O * Notify me if snoring with mask or feeling that the pressure is too much or too little * Continue to try to lose weight * Call this office if any problems using CPAP * Return for follow up in 1-2 months, or sooner if concerns arise Counseling Topics: Spare mask, Weight loss health impact Visit Type: In Office Time Spent with Patient (minutes): 22 Provider Statement: I spent 100% of the Face to Face Visit with the patient with greater than 50% spent counseling the patient and coordination of care.
== END 2021-03-21 15:12 | disposition home or self-care (01) ==
LOC: SC 15:11
PROVIDERS: ATTEND Nurse Practitioner Family
DX: G47.33 Obstructive sleep apnea (adult) (pediatric) (principal); E66.01 Morbid (severe) obesity due to excess calories; Z68.43 Body mass index [BMI] 50.0-59.9, adult
CPT/HCPCS: 99212; 99213

== ENCOUNTER 2021-04-16 15:13 | Outpatient (CLI) | payer OTHER ==
[2021-04-16 16:02] VITALS: BP 135/82
--- NOTE | 2021-04-16 16:02 | SLEEP CARE CONSULTATION ---
Information from patient questionnaire entered by Donny Ng. I have reviewed and concur with the information entered by Donny Ng. This document represents the service I personally performed and the decisions made by me, Kalyn Bowling ARNP. History of Present Illness Service Date and Time: 04/16/2021 1513 Previous diagnosis: Severe, Obstructive Sleep Apnea-Hypopnea Syndrome AHI: 30.2 Reason for follow up: one month (followup - pressure change) Equipment obtained from: [employer] (gettings supplies as needed) Mask style: Nasal Backup mask available: No (will keep old mask when replaced) Last cushion change: 1 week ago Prior sleep studies: No Year and Where: 2020 - [facility] Type of Sleep Study: Home sleep study HPI additional information: DIMPLE SERNA was diagnosed to have severe, AHI 30.2, obstructive sleep a pnea-hypopnea syndrome and returned today for CPAP therapy one month with pressure change follow-up. CPAP Compliance Data - Data Reviewed with Patient Average duration of nightly device use: 5 hours 35 mins Compliance rate %: 83 Current pressure setting (cmH2O): 4-15 (median 11.7, avg 14.2, max 14.7) Average residual AHI: 0.2 Central apnea: 0.0 Obstructive apnea: 0.0 Subjective Missed days of use due to: reports: illness Patient concerns: reports: dry mouth, nose, throat (just ran out of water in her chamber last night). denies: aerophagia, mask discomfort, air blowing in eyes, mask leak noise, condensation in mask/hose, nasal congestion, epistaxis, other Observed to snore while using device: No Current pressure setting perceived as: comfortable On therapy, patient: reports: sleeping better, awakening more refreshed, being more awake and alert during the day, more rested overall. denies: drowsiness while driving Initial [place] Sleepiness Scale score: 16 (in 2020) Current [place] Sleepiness Scale score: 9 Allergies and Home Medications Home medication list reviewed: Yes (Prednisone and colchicine for gout) Review of Systems Review of systems same as previous: No (gout flare) Physical Exam Blood Pressure: 135/82 Cuff size: wrist Heart Rate: 91 O2 Saturation: 95 Height: 5 ft 1 in Weight: 312 lb Body Mass Index: 58.9 BMI Classification: Morbidly Obese Impression and Plan 1. Obstructive Sleep Apnea-Hypopnea Syndrome, severe, with fair treatment compliance and excellent apnea control. On CPAP therapy, the patient has better sleep quality and is more rested overall. Patient's connectivity at her home is spotty and it looks like the change to her pressure did not go through after her last visit. I will change her pressure to 12-15 cmH2O and have them put it on her memory chip so it will upload to her device. Patient has no other issues other than she got really dry last night when the water in the humidifier chamber ran out early. Patient was encouraged to lose weight for their overall health and to reduce apneas. Patient's apnea severity and rationale for treatm ent to reduce apnea, improve sleep quality and reduce cardiovascular and cerebrovascular events was reviewed. I also reviewed the benefit of consistent device use of CPAP for hypertension, cardiac disease (CHF) and asthma. * Change auto CPAP pressure to 12-15 cmH2O * Notify me if snoring with mask or feeling that the pressure is too much or too little * Attempt to lose weight * Call this office if any problems using CPAP * Return for follow up in 3 months, or sooner if concerns arise Counseling Topics: Spare mask, Weight loss health impact Visit Type: In Office Time Spent with Patient (minutes): 21 Provider Statement: I spent 100% of the Face to Face Visit with the patient with greater than 50% spent counseling the patient and coordination of care.
== END 2021-04-16 15:14 | disposition home or self-care (01) ==
LOC: SC 15:13
PROVIDERS: ATTEND Nurse Practitioner Family
DX: G47.33 Obstructive sleep apnea (adult) (pediatric) (principal); E66.01 Morbid (severe) obesity due to excess calories; Z68.43 Body mass index [BMI] 50.0-59.9, adult
CPT/HCPCS: 99212; 99213

== ENCOUNTER 2021-06-10 07:27 | Outpatient (CLI) | payer OTHER ==
[2021-06-10 14:58] LABS: ALBUMIN 4.2 g/dL (3.2-5.5); ALBUMIN/GLOBULIN RATIO 1.5 (1.0-2.2); CREATININE 1.2 mg/dL (0.4-1.0); POTASSIUM 3.8 mmol/L (3.5-5.0)
== END 2021-06-10 07:28 | disposition home or self-care (01) ==
LOC: LAB.S 07:27
PROVIDERS: ATTEND Internal Medicine
DX: R60.0 Localized edema (principal)
CPT/HCPCS: 36415; 80053

== ENCOUNTER 2021-07-18 15:16 | Outpatient (CLI) | payer OTHER ==
--- NOTE | 2021-07-18 15:46 | SLEEP CARE CONSULTATION ---
Information from patient questionnaire entered by Skyler Pike MA. I have reviewed and concur with the information entered by Skyler Pike MA. This document represents the service I personally performed and the decisions made by , Kalyn Bowling ARNP. History of Present Illness Service Date and Time: 07/18/2021 1516 Previous diagnosis: Severe, Obstructive Sleep Apnea-Hypopnea Syndrome AHI: 30.2 Reason for follow up: three month (PRESSURE CHANGE) Equipment obtained from: [email or web address] (gettings supplies as needed) Mask style: Nasal Backup mask available: Yes (extra cushions but no headgear yet) Last cushion change: 1 month Prior sleep studies: No Year and Where: 2020 - [facility] Type of Sleep Study: Home sleep study HPI additional information: DIMPLE SERNA was diagnosed to have severe, AHI 30.2, obstructive sleep apnea-hypopnea syndrome and returned today for CPAP therapy three month follow- up. Sleep Study - Results Type of Sleep Study: Home sleep study Prior sleep studies: No Year and Where: 2020 - [facility] CPAP Compliance Data - Data Reviewed with Patient Average duration of nightly device use: 5 HOURS 52 MINUTES Compliance rate %: 84 Current pressure setting (cmH2O): 12-15 Average residual AHI: 0.3 Central apnea: 0 Obstructive apnea: 0 Average large leak: 25.9 Subjective Missed days of use due to: reports: illness (chest cold), other (POWER OUTAGES) Patient concerns: reports: mask leak noise, dry mouth, nose, throat (occasional; uses pillow under chin because mouth is open while asleep), other (drooling). denies: aerophagia, mask discomfort, air blowing in eyes, condensation in mask/h ose, nasal congestion, epistaxis Observed to snore while using device: No Current pressure setting perceived as: comfortable On therapy, patient: reports: sleeping better, awakening more refreshed, being more awake and alert during the day, more rested overall. denies: drowsiness while driving Initial [place] Sleepiness Scale score: 16 (in 2020) Current [place] Sleepiness Scale score: 8 (2021) Allergies and Home Medications Home medication list reviewed: Yes Allergy and home medication list: Allopurinol being increased medication for muscle spasms, just starting and don't know name Review of Systems Review of systems same as previous: Yes (no changes) Physical Exam Vital signs obtained and entered by: ROCCO MACHADO Heart Rate: 72 O2 Saturation: 93 (WITH PAPER MASK) Height: 5 ft 1 in Weight: 301 lb (WITH CLOTHES) Weight change since last visit: 11 lb loss Body Mass Index: 56.8 BMI Classification: Morbidly Obese Impression and Plan 1. Obstructive Sleep Apnea-Hypopnea Syndrome, severe, with good treatment compliance and excellent apnea control. On CPAP therapy, the patient has better sleep quality and is more rested overall. Patient is satisfied with current CPAP therapy and has significant improvement of her sleep apnea. Patient has lost weight. Currently patients BMI is 56.8. Obesity increases the risk of apnea, CPAP pressure requirements and overall health risks especially cardiovascular and diabetes. Thus patient is advised to continue to lose weight. Weight loss can be done with reducing portion size, reducing refined foods and balancing content with vegetables, fruit and whole grain foods. In addition, patient encouraged to get regular exercise. The patient's CPAP pressure range should accommodate some weight loss. Patient is going to get back with her bariatric people soon to possibly remove her gastric sleeve. Symptoms to report for additional pressure adjustment discussed. Patient was encouraged to lose weight for their overall health and to reduce apneas. Patient's apnea severity and rationale for treatment to reduce apnea, improve sleep quality and reduce cardiovascular and cerebrovascular events was reviewed. I also reviewed the benefit of consistent device use of CPAP for hypertension, cardiac disease (CHF) and asthma. * Continue auto CPAP pressure at 12-15 cmH2O * Notify me if snoring with mask or feeling that the pressure is too much or too little * Attempt to lose weight * Call this office if any problems using CPAP * Return for follow up in 6 months, or sooner if concerns arise Counseling Topics: Spare mask, Weight loss health impact Visit Type: In Office Time Spent with Patient (minutes): 21 Provider Statement: I spent 100% of the Face to Face Visit with the patient with greater than 50% spent counseling the patient and coordination of care.
== END 2021-07-18 15:17 | disposition home or self-care (01) ==
LOC: SC 15:16
PROVIDERS: ATTEND Nurse Practitioner Family
DX: G47.33 Obstructive sleep apnea (adult) (pediatric) (principal); E66.01 Morbid (severe) obesity due to excess calories; Z68.43 Body mass index [BMI] 50.0-59.9, adult
CPT/HCPCS: 99212; 99213

== ENCOUNTER 2021-09-06 13:44 | Outpatient (CLI) | payer OTHER ==
[2021-09-06 20:39] LABS: BASOPHILS % (AUTO) 0.5 %; EOSINOPHILS # (AUTO) 0.3 10^3/uL (0.0-0.7); EOSINOPHILS % (AUTO) 4.1 %; HCT - HEMATOCRIT 41.8 % (37.0-47.0); HGB - HEMOGLOBIN 13.3 g/dL (12.0-16.0); LYMPHOCYTES # (AUTO) 2.6 10^3/uL (1.5-3.5); LYMPHOCYTES % (AUTO) 33.5 %; MEAN CORPUSCULAR HEMOGLOBIN 34.1 pg (27.0-31.0); MEAN CORPUSCULAR HGB CONC 31.8 g/dL (32.0-36.0); MEAN CORPUSCULAR VOLUME 107.2 fL (81.0-99.0); MEAN PLATELET VOLUME 9.8 fL (7.9-10.8); MONOCYTES # (AUTO) 0.5 10^3/uL (0.0-1.0); MONOCYTES % (AUTO) 5.8 %; NEUTROPHILS # (AUTO) 4.4 10^3/uL (1.5-6.6); PLT - PLATELET COUNT 254 10^3/uL (130-450); RED CELL DISTRIBUTION WIDTH 17.4 % (12.0-15.0); WHITE BLOOD COUNT 7.8 x10^3/uL (4.8-10.8)
[2021-09-06 20:59] LABS: ALBUMIN 3.7 g/dL (3.2-5.5); ALBUMIN/GLOBULIN RATIO 1.2 (1.0-2.2); BILIRUBIN,TOTAL 0.7 mg/dL (0.2-1.0); CREATININE 3.9 mg/dL (0.4-1.0); POTASSIUM 5.3 mmol/L (3.5-5.0); TOTAL PROTEIN 6.8 g/dL (6.7-8.2); URIC ACID 3.1 mg/dL (2.6-7.2)
== END 2021-09-06 13:45 | disposition home or self-care (01) ==
LOC: LAB.S 13:44
PROVIDERS: ATTEND Internal Medicine
DX: R79.89 Other specified abnormal findings of blood chemistry (principal); M10.9 Gout, unspecified; Z79.899 Other long term (current) drug therapy
CPT/HCPCS: 36415; 80053; 84550; 85025

== ENCOUNTER 2021-09-13 13:42 | Outpatient (CLI) | payer OTHER ==
[2021-09-13 20:15] LABS: BILIRUBIN,URINE NEGATIVE (NEGATIVE); GLUCOSE, URINE (UA) NEGATIVE (NEGATIVE); KETONES,URINE (UA) NEGATIVE (NEGATIVE); LEUKOCYTE ESTERASE, URINE SMALL (NEGATIVE); NITRITE,URINE NEGATIVE (NEGATIVE); OCCULT BLOOD,URINE NEGATIVE (NEGATIVE); PROTEIN,URINE NEGATIVE (NEGATIVE); UROBILINOGEN,URINE 0.2 (NORMAL) E.U./dL (NORMAL)
[2021-09-13 20:17] LABS: CLARITY,URINE HAZY (CLEAR)
[2021-09-13 20:27] LABS: ALBUMIN/GLOBULIN RATIO 1.3 (1.0-2.2); BACTERIA,URINE Many /HPF (None Seen); BILIRUBIN,TOTAL 0.9 mg/dL (0.2-1.0); CALCIUM 9.1 mg/dL (8.5-10.3); CREATININE 2.3 mg/dL (0.4-1.0); POTASSIUM 4.4 mmol/L (3.5-5.0); RBC,URINE 0-5 /HPF (0-5); SQUAMOUS EPITHELIAL CELL,UR FEW Squamous (<= Few); TOTAL PROTEIN 7.1 g/dL (6.7-8.2); WBC,URINE >25 /HPF (0-5)
== END 2021-09-13 13:43 | disposition home or self-care (01) ==
LOC: LAB.S 13:42
PROVIDERS: ATTEND Internal Medicine
DX: E87.5 Hyperkalemia (principal); R30.0 Dysuria
CPT/HCPCS: 36415; 80053; 81001; 87086; 87181

== ENCOUNTER 2021-09-27 13:39 | Outpatient (CLI) | payer OTHER ==
[2021-09-27 20:04] LABS: ALBUMIN 4.1 g/dL (3.2-5.5); ALBUMIN/GLOBULIN RATIO 1.2 (1.0-2.2); BILIRUBIN,TOTAL 0.6 mg/dL (0.2-1.0); CALCIUM 9.3 mg/dL (8.5-10.3); CREATININE 1.7 mg/dL (0.4-1.0); POTASSIUM 5.2 mmol/L (3.5-5.0); TOTAL PROTEIN 7.4 g/dL (6.7-8.2)
== END 2021-09-27 13:40 | disposition home or self-care (01) ==
LOC: LAB.S 13:39
PROVIDERS: ATTEND Internal Medicine
DX: N18.30 Chronic kidney disease, stage 3 unspecified (principal)
CPT/HCPCS: 36415; 80053

== ENCOUNTER 2021-10-14 16:29 | Outpatient (CLI) | payer OTHER ==
[2021-10-14 21:33] LABS: CALCIUM 9.3 mg/dL (8.5-10.3); CREATININE 1.8 mg/dL (0.4-1.0); POTASSIUM 4.5 mmol/L (3.5-5.0)
== END 2021-10-14 16:30 | disposition home or self-care (01) ==
LOC: LAB.S 16:29
PROVIDERS: ATTEND Family Medicine
DX: N18.30 Chronic kidney disease, stage 3 unspecified (principal)
CPT/HCPCS: 36415; 80048

== ENCOUNTER 2021-12-03 18:48 | Outpatient (CLI) | payer OTHER ==
--- NOTE | 2021-12-04 20:54 | Ultrasound Report ---
PROCEDURE: Retroperitoneal INDICATIONS: KIDNEY INJURY TECHNIQUE: Real-time scanning was performed of the retroperitoneal organs, with image documentation. COMPARISON: None. FINDINGS: Kidneys: Kidneys are normal in size. Right kidney measures 9.0 cm long; left kidney measures 9.4 cm long. Right renal cortical thickness is 1.4 cm; left renal cortical thickness is 0.8 cm. No solid masses, hydronephrosis, or nephrolithiasis. Bladder: Pre-void bladder volume is 365 mL. Post-void residual is 9 mL. Pre-void images demonstrat e no intraluminal masses or stones. On pre-void images, bilateral ureteral jets are noted with color Doppler interrogation. (Of note, ureteral jets may not be detectable in up to 25% of cases due to i nsufficient differences in specific gravity between ureteral and bladder urine). Miscellaneous: No free abdominal fluid. IMPRESSION: No visualized renal injury. Reviewed by: Lisa Haque MD on 12/04/2021 8:53 PM PDT Approved by: Lisa Haque MD on 12/04/2021 8:53 PM PDT Station ID: [id number]
== END 2021-12-03 18:49 | disposition home or self-care (01) ==
LOC: DI 18:48
PROVIDERS: ATTEND Internal Medicine Nephrology
DX: N17.9 Acute kidney failure, unspecified (principal)

== ENCOUNTER 2022-01-17 11:06 | Outpatient (CLI) | payer OTHER ==
--- NOTE | 2022-01-17 11:31 | SLEEP CARE CONSULTATION ---
Information from patient questionnaire entered by Skyler Pike MA. I have reviewed and concur with the information entered by Skyler Pike MA. This document represents the service I personally performed and the decisions made by , Kalyn Bowling ARNP. History of Present Illness Service Date and Time: 01/17/2022 1106 Previous diagnosis: Severe, Obstructive Sleep Apnea-Hypopnea Syndrome AHI: 30.2 Reason for follow up: six month (LAST SEEN 06/2021, RADHA, REID , ) Equipment type: CPAP Equipment obtained from: [employer] (gettings supplies as needed) Mask style: Nasal Mask brand: Resmed Backup mask available: Yes (old mask) Last cushion change: couple months [facility]: [email or web address]: [facility] sleep study HPI additional information: DIMPLE SERNA was diagnosed to have severe, AHI 30.2, obstructive sleep apnea-hypopnea syndrome and returned today for CPAP therapy six month follow-up. Sleep Study - Results Type of Sleep Study: Home sleep study Prior sleep studies: No [email or web address] Compliance Data - Data Reviewed with Patient Average duration of nightly device use: 6 HOURS 32 MINUTES Compliance rate %: 87 (07/19/21-01/14/22; 180 days; 162/180 used ) Current pressure setting (cmH2O): 12-15 Average residual AHI: 0.4 Central apnea: .0 Obstructive apnea: .0 Hypopnea: .2 Average large leak: 6.5 Subjective Missed days of use due to: reports: travel, other (home late and forgot to put mask on) Patient concerns: reports: mask leak noise (needs to change mask cushion more often), dry mouth, nose, throat (has been oral venting with nasal cushion). denies: aerophagia, mask discomfort, air blowing in eyes, condensation in mask/hose, nasal congestion, epistaxis, other Observed to snore while using device: No Current pressure setting perceived as: comfortable On therapy, patient: reports: sleeping better, awakening more refreshed, being more awake and alert during the day, more rested overall. denies: drowsiness while driving Initial [place] Sleepiness Scale score: 16 (in 2020) Current [place] Sleepiness Scale score: 2 (01/17/2022) Allergies and Home Medications Drug allergies reviewed: Yes (NKDA) Home medication list reviewed: Yes Allergy and home medication list: Allergies No Known Drug Allergies Allergy (Verified 04/21/16 17:09) Medications: Allupurinol 300 mg daily Lisinopril, cut dose in half All other medications stopped by [employer] Review of Systems Review of systems same as previous: No (Kidney injury, being monitored and f/u tests) Physical Exam Vital signs obtained and entered by: ROCCO MACHADO Blood Pressure: 108/75 (RESP 18, PULSE 81, RIGHT) Cuff size: wrist Heart Rate: 72 O2 Saturation: 94 (PAPER MASK) Height: 5 ft 1 in Weight: 287 lb 8 oz (CLOTHES) Weight change since last visit: OVER 300LBS - PORTIONS, HEALTHY EATING; 14 lb loss Body Mass Index: 54.3 BMI Classification: Morbidly Obese Impression and Plan 1. Obstructive Sleep Apnea-Hypopnea Syndrome, severe, with good treatment compliance and excellent apnea control. On CPAP therapy, the patient has better sleep quality and is more rested overall. Patient has significant improvement of her sleep apnea and is satisfied with current CPAP therapy. Patient states she gets a lot of dry mouth when using her CPAP. After a few questions she states she does probably oral vent when she is sleeping. She uses a nasal cushion mask. I encouraged her to try either a chinstrap to hold her mouth closed or takes made to go over her mouth to keep the mouth closed. If this does not work we could change her to a full face mask that covers her mouth. She voiced understanding and agreement with this plan of care. Patient's apnea severity and rationale for treatment to reduce apnea, improve sleep quality and reduce cardiovascular and cerebrovascular events was reviewed. I also reviewed the benefit of consistent device use of CPAP for hypertension, cardiac disease (CHF) and asthma. 2. Obesity, unspecified. Patient has lost weight by healthy eating, portion control and stopped drinking alcohol. Currently patients BMI is 54.3. Obesity increases the risk of apnea, CPAP pressure requirements and overall health risks especially cardiovascular and diabetes. Thus patient is advised to continue to try to lose weight. Weight loss can be done with reducing portion size, reducing refined foods and balancing content with vegetables, fruit and whole grain foods. In addition, patient encouraged to get regular exercise. The patient's CPAP pressure range should accommodate some weight loss. Symptoms to report for additional pressure adjustment discussed. * Continue auto CPAP pressure at 12-15 cmH2O * Notify me if snoring with mask or feeling that the pressure is too much or too little * Continue to try to lose weight * Call this office if any problems using CPAP * Return for follow up in 1 year, or sooner if concerns arise Counseling Topics: Spare mask, Weight loss health impact Visit Type: In Office Time Spent with Patient (minutes): 20 Provider Statement: I spent 100% of the Face to Face Visit with the patient with greater than 50% spent counseling the patient and coordination of care.
[2022-01-17 11:32] VITALS: BP 108/75
== END 2022-01-17 11:07 | disposition home or self-care (01) ==
LOC: SC 11:06
PROVIDERS: ATTEND Nurse Practitioner Family
DX: G47.33 Obstructive sleep apnea (adult) (pediatric) (principal); E66.01 Morbid (severe) obesity due to excess calories; Z68.43 Body mass index [BMI] 50.0-59.9, adult
CPT/HCPCS: 99212; 99213

== ENCOUNTER 2022-03-17 13:52 | Outpatient (CLI) | payer OTHER ==
[2022-03-17 20:10] LABS: CALCIUM 9.1 mg/dL (8.5-10.3); CREATININE 1.3 mg/dL (0.4-1.0)
== END 2022-03-17 13:53 | disposition home or self-care (01) ==
LOC: LAB.S 13:52
PROVIDERS: ATTEND Registered Nurse
DX: E87.5 Hyperkalemia (principal)
CPT/HCPCS: 36415; 80048

== ENCOUNTER 2022-08-04 11:39 | Outpatient (CLI) | payer OTHER ==
[2022-08-04 15:03] LABS: CREATININE 1.4 mg/dL (0.4-1.0); POTASSIUM 4.7 mmol/L (3.5-5.0); URIC ACID 6.2 mg/dL (2.6-7.2)
== END 2022-08-04 11:40 | disposition home or self-care (01) ==
LOC: LAB.S 11:39
PROVIDERS: ATTEND Internal Medicine Nephrology
DX: N05.9 Unspecified nephritic syndrome with unspecified morphologic changes (principal); M10.00 Idiopathic gout, unspecified site
CPT/HCPCS: 36415; 80048; 84550

== ENCOUNTER 2023-02-04 14:19 | Outpatient (CLI) | payer OTHER ==
--- NOTE | 2023-02-04 15:13 | Sleep Patient Instructions ---
Sleep Center Visit Summary - Patient Visit Information Reason for Visit: Annual visit for PAP therapy - Patient Instructions Additional Instructions: You will continue with CPAP therapy with pressure set at 12-15 cmH2O. A supply prescription will be updated with your DME. We encourage you to continue to try to lose weight. Please follow up with the sleep care office in 1 year. - Clinic Information Contact: [facility] [address] [place] [address] [email or web address] T: [phone]
--- NOTE | 2023-02-04 15:16 | SLEEP CARE CONSULTATION ---
Information from patient questionnaire entered by Dallas De León. I have reviewed and concur with the information entered by Dallas De León. This document represents the service I personally performed and the decisions made by , Kalyn Bowling ARNP. History of Present Illness Service Date and Time: 02/04/2023 1419 Previous diagnosis: Severe, Obstructive Sleep Apnea-Hypopnea Syndrome AHI: 30.2 Reason for follow up: annual (LAST SEEN 12/2021) Equipment type: CPAP (RESMED Airsense 11, 01/2021) Equipment obtained from: [email or web address] (gettings supplies as needed) Mask style: Nasal Backup mask available: Yes (old mask) Last cushion change: 2 months Prior sleep studies: No Year and Where: 2020 - [facility] Type of Sleep Study: Home sleep study HPI additional information: DIMPLE SERNA was diagnosed to have severe, AHI 30.2, obstructive sleep apnea-hypopnea syndrome and returned today for CPAP therapy annual follow-up. Sleep Study - Results Type of Sleep Study: Home sleep study Prior sleep studies: No Year and Where: 2020 - [facility] CPAP Compliance Data - Data Reviewed with Patient Average duration of nightly device use: 8 HRS 14 MIN Compliance rate %: 98 (177-180 days used) Current pressure setting (cmH2O): 12-15 Average residual AHI: 0.3 Central apnea: 0 Obstructive apnea: 0 Hypopnea: 0.1 Subjective Missed days of use due to: reports: travel, other (power outage) Patient concerns: reports: dry mouth, nose, throat (occasional, when mouth comes open). denies: aerophagia, mask discomfort, air blowing in eyes, mask leak noise, condensation in mask/hose, nasal congestion, epistaxis Observed to snore while using device: No Current pressure setting perceived as: comfortable On therapy, patient: reports: sleeping better, awakening more refreshed, being more awake and alert during the day, more rested overall. denies: drowsiness while driving Initial [place] Sleepiness Scale score: 16 (in 2020) Current [place] Sleepiness Scale score: 7 (02/04/23) Allergies and Home Medications Known drug allergies: No Drug allergies reviewed: Yes Home medication list reviewed: Yes (no changes) Allergy and home medication list: Allergies No Known Drug Allergies Allergy (Verified 02/03/23 11:16) Review of Systems Review of systems same as previous: Yes (going for bariatric surgery in February) Physical Exam Vital signs obtained and entered by: DALLAS Sauceda MA Blood Pressure: 136/82 (LEFT WRIST) Cuff size: regular Heart Rate: 98 O2 Saturation: 95 Height: 5 ft 1 in Weight: 312 lb 6.4 oz Body Mass Index: 59.0 BMI Classification: Morbidly Obese Impression and Plan 1. Obstructive Sleep Apnea-Hypopnea Syndrome, severe, with good treatment compliance and good apnea control. On CPAP therapy, the patient has better sleep quality and is more rested overall. Patient has significant improvement of their sleep apnea and is satisfied with current CPAP therapy. Patient denies problems with oral dryness, nasal congestion, epistaxis, skin irritation or aerophagia. Patient's apnea severity and rationale for treatment to reduce apnea, improve sleep quality and reduce cardiovascular and cerebrovascular events was reviewed. I also reviewed the benefit of consistent device use of CPAP for hypertension, cardiac disease (CHF), and asthma. 2. Obesity, unspecified. Currently patients BMI is 59. She is scheduled for bariatric surgery in February. Obesity increases the risk of apnea, CPAP pressure requirements and overall health risks especially cardiovascular and diabetes. Thus patient is advised to continue to try to lose weight. * Continue auto CPAP pressure at 12-15 cmH2O * Update supplies * Notify me if snoring with mask or feeling that the pressure is too much or too little * Attempt to lose weight * Call this office if any problems using CPAP * Return for follow up in 1 year, or sooner if concerns arise Counseling Topics: Spare mask, Weight loss health impact Visit Type: In Office Time Spent with Patient (minutes): 20 Provider Statement: I spent 100% of the Face to Face Visit with the patient with greater than 50% spent counseling the patient and coordination of care.
[2023-02-04 15:18] VITALS: BP 136/82; O2SAT 95
== END 2023-02-04 14:20 | disposition home or self-care (01) ==
LOC: SC 14:19
PROVIDERS: ATTEND Nurse Practitioner Family
DX: G47.33 Obstructive sleep apnea (adult) (pediatric) (principal); E66.01 Morbid (severe) obesity due to excess calories; Z68.43 Body mass index [BMI] 50.0-59.9, adult
CPT/HCPCS: 99212; 99213